=== PATIENT | male | born 1960 | race Caucasian/White ===

== ENCOUNTER 2018-05-18 10:19 | Emergency (ER) | payer OTHER ==
[~2018-05-18] VITALS: Ht 177.8 cm; Wt 108.9 kg
[2018-05-18 10:23] VITALS: BP 140/68
[2018-05-18] MEDS ORDERED: CLON0.2T16 PO (11:17)
[2018-05-18] MEDS ORDERED: OLAN2.5T1 PO (11:17)
[2018-05-18] MEDS ORDERED: GABA100C PO ×2 (11:17)
[2018-05-18] MEDS ORDERED: VITA1TAB44 PO (11:17)
[2018-05-18] MEDS ORDERED: SOLI5TAB PO (11:17)
[2018-05-18] MEDS ORDERED: LEVE750T3 PO (11:17)
[2018-05-18] MEDS ORDERED: ERGO500028 PO (11:17)
[2018-05-18] MEDS ORDERED: PHO667 PO (11:17)
[2018-05-18] MEDS ORDERED: TAMS0.4C96 PO (11:17)
[2018-05-18] MEDS ORDERED: HUM SUBQ (11:17)
[2018-05-18] MEDS ORDERED: DIT5 PO (11:17)
[2018-05-18] MEDS ORDERED: FURO-570 PO (11:17)
[2018-05-18] MEDS ORDERED: ATOR40TA PO (11:17)
[2018-05-18] MEDS ORDERED: CLOP75TA55 PO (11:17)
[2018-05-18] MEDS ORDERED: AMLO10TA PO (11:17)
[2018-05-18] MEDS ORDERED: HYDR100T79 PO (11:17)
[2018-05-18] MEDS ORDERED: SERT25TA PO (11:17)
[2018-05-18 11:36] LABS: BASOPHILS # (AUTO) 0.1 K/uL (0.00-0.22); BASOPHILS % (AUTO) 1.1 % (0.0-2.0); EOSINOPHILS # (AUTO) 0.3 K/uL (0-0.4); EOSINOPHILS % (AUTO) 4.5 % (0.0-4.0); HEMATOCRIT 36.7 % (36-52); HEMOGLOBIN 11.9 g/dL (12.0-18.0); LYMPHOCYTES % (AUTO) 29.9 % (20.5-51.1); MEAN CORPUSCULAR HEMOGLOBIN 30 pg (27-31); MEAN CORPUSCULAR HGB CONC 33 g/dL (33-37); MEAN CORPUSCULAR VOLUME 90.7 fL (80-94); MONOCYTES # (AUTO) 0.6 K/uL (0.8-1.0); MONOCYTES % (AUTO) 9.3 % (1.7-9.3); NEUTROPHILS # (AUTO) 3.8 K/uL (1.8-7.7); NEUTROPHILS % (AUTO) 55.2 % (42.2-75.2); PLATELET COUNT (AUTO) 206 K/uL (140-450); RED BLOOD CELL COUNT(AUTO) 4.05 MIL/uL (4.20-6.10); RED CELL DISTRIBUTION WIDTH 15.8 % (11.6-13.7); WHITE BLOOD COUNT (AUTO) 6.8 K/uL (4.8-10.8)
[2018-05-18 11:52] LABS: PROTHROMBIN TIME 10.4 secs (10.8-13.4)
[2018-05-18 11:54] LABS: ALBUMIN 3.3 g/dL (3.4-5.0); ANION GAP 14.8 (8-16); CARBON DIOXIDE 29.5 mmol/L (21-32); POTASSIUM 5.3 mmol/L (3.5-5.1); TOTAL BILIRUBIN 0.8 mg/dL (0.0-1.0)
[2018-05-18 11:57] LABS: CREATININE 9.3 mg/dL (0.7-1.3)
[2018-05-18] MEDS ORDERED: SODIUM POLYSTYRENE 15 GM/60 ML UDBTL PO ONE (12:15)
[2018-05-18 15:59] VITALS: BP 131/69
== END 2018-05-18 16:00 | disposition home or self-care (01) ==
LOC: MED 10:19
DX: D18.09 Hemangioma of other sites (principal); Z86.73 Personal history of transient ischemic attack (TIA), and cerebral infarction without residual deficits; E11.9 Type 2 diabetes mellitus without complications; F20.9 Schizophrenia, unspecified; Z79.4 Long term (current) use of insulin; Z79.899 Other long term (current) drug therapy
CPT/HCPCS: 36415; 71045; 80053; 83880; 84484; 85025; 85610; 85730; 99285; Q0092

== ENCOUNTER 2018-06-01 13:15 | Emergency (ER) | payer OTHER ==
[~2018-06-01] VITALS: Ht 182.9 cm; Wt 97.5 kg
[~2018-06-01 13:15] MED LIST: AMLO10TA PO; ATOR40TA PO; CLON0.2T16 PO; CLOP75TA55 PO; DIT5 PO; ERGO500028 PO; FURO-570 PO; GABA100C PO; HUM SUBQ; HYDR100T79 PO; LEVE750T3 PO; OLAN2.5T1 PO; PHO667 PO; SERT25TA PO; SOLI5TAB PO; TAMS0.4C96 PO; VITA1TAB44 PO
[2018-06-01 13:21] VITALS: BP 193/97
[2018-06-01] MEDS: MORPHINE SULFATE 2 MG/ML SYR IM ONE (14:57)
[2018-06-01 16:28] VITALS: BP 188/86
== END 2018-06-01 16:28 | disposition home or self-care (01) ==
LOC: MED 13:15
DX: E11.22 Type 2 diabetes mellitus with diabetic chronic kidney disease (principal); I12.0 Hypertensive chronic kidney disease with stage 5 chronic kidney disease or end stage renal disease; N18.6 End stage renal disease; M54.42 Lumbago with sciatica, left side; Z99.2 Dependence on renal dialysis; Z86.73 Personal history of transient ischemic attack (TIA), and cerebral infarction without residual deficits; Z79.899 Other long term (current) drug therapy
CPT/HCPCS: 71045; 74176; 82948; 93005; 96372; 99284; J2270; Q0092

== ENCOUNTER 2018-07-29 10:32 | Emergency (ER) | payer OTHER ==
[~2018-07-29] VITALS: Ht 175.3 cm; Wt 115.7 kg
[2018-07-29 10:36] VITALS: BP 139/67
--- NOTE | 2018-07-29 10:46 | NUR ---
58 YO MALE BIB EMS FROM DIALYSIS CENTER FOR LEFT LEG PAIN. AWAKE AND ALERT ON ARRIVAL YELLING AND ARGUMENTATIVE. DENIES N/V/D. PATIENT STATES PAIN OF 8/10 AT THIS TIME. PATIENT POSITIONED FOR COMFORT; HOB ELEVATED; BEDRAILS UP X2; BED DOWN. ER MD MADE AWARE OF PT STATUS.
--- NOTE | 2018-07-29 11:13 | NUR ---
Patient being evaluated by DR MADISON at bedside.
[2018-07-29] MEDS ORDERED: MORPHINE SULFATE 4 MG/ML SYR IVP ONE (11:20)
[2018-07-29] MEDS ORDERED: ONDANSETRON 4 MG/2 ML VIAL IVP ONE (11:25)
[2018-07-29 11:49] LABS: BASOPHILS # (AUTO) 0.1 K/uL (0.00-0.22); BASOPHILS % (AUTO) 0.3 % (0.0-2.0); EOSINOPHILS % (AUTO) 0.2 % (0.0-4.0); HEMATOCRIT 29.1 % (36-52); HEMOGLOBIN 9.2 g/dL (12.0-18.0); LYMPHOCYTES # (AUTO) 1.6 K/uL (2.0-11.5); LYMPHOCYTES % (AUTO) 7.7 % (20.5-51.1); MEAN CORPUSCULAR HEMOGLOBIN 27 pg (27-31); MEAN CORPUSCULAR HGB CONC 32 g/dL (33-37); MEAN CORPUSCULAR VOLUME 86.5 fL (80-94); MONOCYTES # (AUTO) 1.4 K/uL (0.8-1.0); MONOCYTES % (AUTO) 7.1 % (1.7-9.3); NEUTROPHILS # (AUTO) 17.1 K/uL (1.8-7.7); NEUTROPHILS % (AUTO) 84.7 % (42.2-75.2); PLATELET COUNT (AUTO) 404 K/uL (140-450); RED BLOOD CELL COUNT(AUTO) 3.36 MIL/uL (4.20-6.10); RED CELL DISTRIBUTION WIDTH 15.9 % (11.6-13.7); WHITE BLOOD COUNT (AUTO) 20.2 K/uL (4.8-10.8)
--- NOTE | 2018-07-29 12:05 | NUR ---
US AT BEDSIDE
[2018-07-29 12:31] LABS: CREATININE 8.4 mg/dL (0.7-1.3); POTASSIUM 4.1 mmol/L (3.5-5.1)
[2018-07-29 12:32] LABS: ANION GAP 16.9 (8-16); CARBON DIOXIDE 29.2 mmol/L (21-32)
--- NOTE | 2018-07-29 14:32 | NUR ---
CALLED [phone]. spoke to Lela BENSON FROM [facility]. REPORTED PT DISCHARGE TO FACILITY.
--- NOTE | 2018-07-29 15:00 | NUR ---
PROVIED RANAL DIET.PT ATE 100%. DENIES N/V AT THIS TIME.
--- NOTE | 2018-07-29 15:32 | NUR ---
WAIT IN LOBBY FOR TRANSPORTATION AT 0700PM. NOTIFIED HIGINIO VAN Addendum: 07/29/18 at 1549 by [email or web address] DISCONECT 24 G RFA BEFORE DC.
[2018-07-29 19:17] VITALS: BP 135/81
--- NOTE | 2018-07-29 19:17 | NUR ---
Patient discharged with v/s stable. Written and verbal after care instructions given and explained. Patient verbalized understanding. Wheel Chair Assisted with to car. All questions addressed prior to discharge. Advised to follow up with PMD. FOUNDER CEO & PRESIDENT BY EMS ABBEY TURNER TO [facility].
== END 2018-07-29 19:17 | disposition home or self-care (01) ==
LOC: MED 10:32
DX: M79.605 Pain in left leg (principal); E11.9 Type 2 diabetes mellitus without complications; H54.7 Unspecified visual loss; I10 Essential (primary) hypertension; Z86.73 Personal history of transient ischemic attack (TIA), and cerebral infarction without residual deficits; Z79.4 Long term (current) use of insulin; Z79.899 Other long term (current) drug therapy
CPT/HCPCS: 36415; 80048; 82948; 85025; 93926; 93971; 96374; 96375; 99284; J2270; J2405; Q0092

== ENCOUNTER 2018-10-14 12:25 | Inpatient (IN) | payer OTHER ==
[~2018-10-14] VITALS: Ht 172.7 cm; Wt 92.5 kg
[2018-10-14 12:30] VITALS: BP 129/74
--- NOTE | 2018-10-14 12:30 | NUR ---
Patient BIBA BLS, transferred to bed 3. RN evaluating patient at bedside.
--- NOTE | 2018-10-14 12:30 | NUR ---
PT HOMER FROM DIALYSIS CENTER, DURING MIDDLE OF DIALYSIS, STAFF STATED PT C/O DIZZINESS AND BECAME HYPOTENSIVE DURING DIALYSIS, DOCTOR WANTED PT TO BE EVALUATED IN ER, PT IS AT HIS BASELINE, YELLING INTERMITTENLY, UNABLE TO ANSWER QUESTIONS APPROPRIATELY. SURGICAL SUTURE NOTED ON LFA. DIALYSIS CATH TO R SUBCLAVIAN. PT HAS G-TUBE, RECTAL TUBE. PT IS ON CDIFF ISOLATION. HOB UP. BED SIDE RAILS UP X2. ON LOW BED POSITION, LOCKED. ER MADE AWARE OF PT STATUS.
--- NOTE | 2018-10-14 13:24 | NUR ---
No paperwork came with patient upon arrival. Called and spoke to Meaghan at [facility] and requested list of medications to be faxed to our fax.
[2018-10-14] MEDS ORDERED: ASPI-1718 PO (13:56)
[2018-10-14] MEDS ORDERED: FOLI1TAB90 PO (13:56)
[2018-10-14] MEDS ORDERED: XAR10 PO (13:56)
[2018-10-14] MEDS ORDERED: ATA25 PO (13:56)
[2018-10-14] MEDS ORDERED: HYDR-5122 PO (13:56)
[2018-10-14] MEDS ORDERED: ACET-2619 PO (13:56)
[2018-10-14 13:59] LABS: BASOPHILS # (AUTO) 0.3 K/uL (0.00-0.22); BASOPHILS % (AUTO) 1.5 % (0.0-2.0); EOSINOPHILS % (AUTO) 0.2 % (0.0-4.0); HEMATOCRIT 32.2 % (36-52); HEMOGLOBIN 9.9 g/dL (12.0-18.0); LYMPHOCYTES # (AUTO) 4.2 K/uL (2.0-11.5); LYMPHOCYTES % (AUTO) 22.4 % (20.5-51.1); MEAN CORPUSCULAR HEMOGLOBIN 25 pg (27-31); MEAN CORPUSCULAR HGB CONC 31 g/dL (33-37); MEAN CORPUSCULAR VOLUME 79.2 fL (80-94); MONOCYTES # (AUTO) 1.7 K/uL (0.8-1.0); NEUTROPHILS # (AUTO) 12.6 K/uL (1.8-7.7); NEUTROPHILS % (AUTO) 66.9 % (42.2-75.2); PLATELET COUNT (AUTO) 537 K/uL (140-450); RED BLOOD CELL COUNT(AUTO) 4.07 MIL/uL (4.20-6.10); RED CELL DISTRIBUTION WIDTH 18.8 % (11.6-13.7); WHITE BLOOD COUNT (AUTO) 18.8 K/uL (4.8-10.8)
[2018-10-14 14:33] LABS: ALBUMIN 2.7 g/dL (3.4-5.0); ANION GAP 19.2 (8-16); CARBON DIOXIDE 27.9 mmol/L (21-32); POTASSIUM 3.1 mmol/L (3.5-5.1); TOTAL BILIRUBIN 0.5 mg/dL (0.0-1.0)
[2018-10-14 14:36] LABS: CREATININE 5.4 mg/dL (0.7-1.3)
--- NOTE | 2018-10-14 14:55 | NUR ---
PATIENT TAKEN TO CT VIA BED.
--- NOTE | 2018-10-14 15:10 | NUR ---
UNABLE TO OBTAIN IV ACCESS. TRIED MULTIPLE TIMES. ER MADE AWARE. ADMITTING DR AHUMADA AWARE AND STATED THAT THEY WILL PLACE CENTRAL LINE ON ADMISSION ON THE FLOOR.
--- NOTE | 2018-10-14 15:17 | NUR ---
PT TAKEN BACK TO ROOM VIA BED BY CHEMICAL PRODUCTION MACHINE OPERATOR
[2018-10-14] MEDS ORDERED: ONDANSETRON 4 MG/2 ML VIAL IM/IVP PRN (17:25)
[2018-10-14] MEDS ORDERED: DOCUSATE SODIUM 100 MG GELCAP PO PRN (17:25)
[2018-10-14] MEDS ORDERED: ACETAMINOPHEN 325 MG TAB PO PRN (17:25)
[2018-10-14 18:00] VITALS: BP 143/71
--- NOTE | 2018-10-14 18:00 | NUR ---
Patient will be admitted to care of Dr. Johnson. Admited to Tele. Will go to room 114. Belongings list completed. Report to MARCELINO Asencio.
--- NOTE | 2018-10-14 18:00 | NUR ---
RECEIVED BEDSIDE REPORT FROM ER NURSE TAD. PT STABLE, AWAKE, AND CONFUSED. PT YELLING AND SCREAMING. NO SIGNS OF DISTRESS NOTED. NO IV ACCESS, ER UNABLE TO INSERT IV, ORDERED TO PUT CENTRAL LINE. CALL CORNEJO WITHIN REACH. BED IN LOWEST POSITION, BED ALARM ON. SAFETY MEASURES IN PLACE. PLAN OF CARE REVIEWED.
[2018-10-14] MEDS: LORazepam 2 MG/ML VIAL IVP SCH ×2 (18:30→21:06)
--- NOTE | 2018-10-14 18:40 | NUR ---
RECEIVED VERBAL CONSENT FROM BROTHER EMILY SINGLETON FOR CENTRAL LINE INSERTION. Addendum: 10/14/18 at 1950 by Tosha Davenport RN DR HARRISON IS SECOND WITNESS, CONSENT IN THE CHART.
[2018-10-14 18:49] LABS: CHOL/HDL RATIO 5.8 (1-4.5); FREE T4 (FREE THYROXINE) 1.02 ng/dL (0.76-1.46); MAGNESIUM 2.1 mg/dL (1.8-2.4); THYROID STIMULATING HORMONE 5.6 uIU/mL (0.34-3.74)
[2018-10-14 18:50] LABS: PHOSPHORUS 0.9 mg/dL (2.5-4.9)
--- NOTE | 2018-10-14 19:15 | NUR ---
RECEIVED BEDSIDE REPORT FROM RN CESILIA HOBSON, PATIENT IN BED SCREAMING "NO" AND "HELP". RESPONSIVE TO NAME WILL SAY "OKAY" WHEN BEING SPOKE TO. ON RA, NO IV, HAS G TUBE, HAS RECTAL TUBE, ON TELE SR, DR ALSTON TO INSERT CENTRAL LINE, CONSENT SIGNED AND IN CHART, V/S STABLE, NOTED SACRAL WOUNDS, BLACK TOES ON RIGHT FOOT, AND RIGHT HIP WOUND.
--- NOTE | 2018-10-14 19:15 | NUR ---
ENDORSED PT TO RN SUMMER FOR CONTINUITY OF CARE. PT STABLE.
[2018-10-14 19:30] VITALS: BP 142/70
--- NOTE | 2018-10-14 21:02 | NUR ---
USED HEPARIN 1000U/1ML FOR ORDER DR GAMALIEL PEREZ
--- NOTE | 2018-10-14 21:06 | NUR ---
GAVE ATIVAN IM TO PATIENT PER DR ALSTON'S ORDER, DR ALSTON AT BEDSIDE INSERTING CENTRAL CATH.
--- NOTE | 2018-10-14 22:00 | NUR ---
CENTRAL LINE PLACEMENT NOT SUCCESSFUL. WILL PUT IN PICC TOMORROW ACCORDING TO DR ALSTON
[2018-10-14] MEDS ORDERED: GABA100C GT (22:19)
[2018-10-14] MEDS ORDERED: ASPI-1718 GT (22:19)
[2018-10-14] MEDS ORDERED: CLON0.2T16 GT (22:19)
[2018-10-14] MEDS ORDERED: ACET-2619 PR (22:19)
[2018-10-14] MEDS ORDERED: AMLO10TA GT (22:19)
--- NOTE | 2018-10-14 22:20 | NUR ---
BOTH ATTEMPTED CENTRAL LINE SITES NO LONGER BLEEDING
[2018-10-14] MEDS ORDERED: LEVE750T3 GT (22:25)
[2018-10-14] MEDS ORDERED: VANC250C9 PO (22:25)
[2018-10-14] MEDS ORDERED: VANC250C9 GT (22:25)
[2018-10-14] MEDS ORDERED: SERT25TA GT (22:25)
[2018-10-14] MEDS ORDERED: HYDR100T79 GT (22:25)
[2018-10-14] MEDS ORDERED: OLAN2.5T1 GT (22:25)
[2018-10-14] MEDS ORDERED: HUM SUBQ (22:28)
[2018-10-14] MEDS ORDERED: DEXTROSE 50% 50 ML SYR IVP PRN (22:30)
[2018-10-14] MEDS: VANCOMYCIN 500 MG VIAL PO SCH ×2 (22:34→23:34)
--- NOTE | 2018-10-14 22:34 | NUR ---
VANCO NOT GIVEN DUE TO PO BUT PATIENT IS SEVERELY CONFUSED AND UNKNOWN AT THIS TIME IF PATIENT IS ALERTED ENOUGH TO SWALLOW. PATIENT HAS GTUBE THAT IS NOT WORKING
--- NOTE | 2018-10-14 23:10 | NUR ---
CALLED JORDEN CLIFFORD FOR ASSESSMENT QUESTIONS NOT PROVIDED IN MEDICAL CHART, SPOKE WITH AZAM FOR ADMISSION QUESTIONS, INFORMATION WAS LIMITED DUE TO PATIENT ONLY BEING AT FACILITY SINCE 10/11/18. SOME INFORMATION QUESTIONS WERE UNABLE TO BE OBTAINED, CHARGE NURSE AWARE. CALLED BROTHER NO ANSWER.
[2018-10-14] MEDS ORDERED: HALOPERIDOL IM 5 MG/ML VIAL ONE (23:34)
[2018-10-14] MEDS ORDERED: THERAHONEY GEL 42.5 GM TP PRN (23:35)
--- NOTE | 2018-10-14 23:40 | NUR ---
GAVE HALDOL FOR AGITATION
--- NOTE | 2018-10-14 23:47 | NUR ---
G TUBE LEAKING AROUND OPENING WILL CALL
--- NOTE | 2018-10-14 23:57 | NUR ---
CANT GIVE ATIVAN THROUGH G-TUBE DUE TO G TUBE LEAKING, HELD ATIVAN
[2018-10-15] VITALS: BP 139/60
[2018-10-15] MEDS ORDERED: HALOPERIDOL IM 5 MG/ML VIAL IM SCH
[2018-10-15] MEDS ORDERED: VANCOMYCIN HCL 250 MG GT SCH
[2018-10-15] MEDS ORDERED: LORazepam 1 MG TAB GT SCH
--- NOTE | 2018-10-15 | NUR ---
DR ALSTON AWARE OF WOUNDS, HE WILL PUT IN ORDERS.
--- NOTE | 2018-10-15 00:13 | NUR ---
LASHANDA ATIVAN DUE TO PATIENT SCREAMING Addendum: 10/15/18 at 0036 by Brenna Blunt RN ORDER WAS FOR G TUBE BUT CANT GIVE THROUGH GTUBE DUE TO LEAKING, LASHANDA DENTON, DR ALSTON AWARE
[2018-10-15] MEDS ORDERED: LORazepam 2 MG/ML VIAL IM/IVP SCH ×3 (00:30→23:30)
--- NOTE | 2018-10-15 00:36 | NUR ---
ORDER FOR MORE ATIVAN DUE TO PATIENT CONTINUING TO SCREAM WILL GIVE ACCORDING TO MD ORDER
--- NOTE | 2018-10-15 01:06 | NUR ---
BP 149/60 HR 77
--- NOTE | 2018-10-15 01:16 | NUR ---
CALL FROM LAB SPOKE WITH BREANNA TROPONIN [phone] ALSTON TO NOTIFY
--- NOTE | 2018-10-15 03:00 | NUR ---
ASKED DR ALSTON IF PATIENT CAN HAVE PO WATER, DR STATED NO WE DONT KNOW PATIENTS ABILITY TO SWALLOW AT THIS TIME, WILL HOLD VANCO SINCE G TUBE NOT WORKING
[2018-10-15] MEDS: VANCOMYCIN 500 MG VIAL PO SCH ×3 (03:47→23:58)
[2018-10-15 04:00] VITALS: BP 145/60
--- NOTE | 2018-10-15 04:00 | NUR ---
WOUND CARE AND ASSESSMENT COMPLETED ACCORDING TO MD ORDER. PATIENT SCREAMING ASK DR ALSTON FOR POSSIBLE PAIN MEDICATION
[2018-10-15] MEDS ORDERED: MORPHINE SULFATE 2 MG/ML SYR IM SCH (05:30)
--- NOTE | 2018-10-15 05:30 | NUR ---
CALLED BROTHER AND PICC LINE NURSE FOR PICC LINE INSERTION NO ANSWER LEFT MESSAGE
[2018-10-15] MEDS: BLOOD GLUCOSE MONITORING 1 DEV DEV FS SCH ×4 (05:52→21:23)
--- NOTE | 2018-10-15 05:52 | NUR ---
GAVE MORPHINE IM, BG 169 WILL HOLD INSULIN SINCE PATIENT IS NPO, NO IV FLUIDS, NO TUBE FEEDINGS
--- NOTE | 2018-10-15 06:17 | NUR ---
PATIENT HAS BEEN SCREENED AND CATEGORIZED HIGH NUTRITION RISK. PATIENT WILL BE SEEN WITHIN 1-2 DAYS OF ADMISSION. 10/15/18-10/16/18 IRENE VAZQUEZ MS, RDN
--- NOTE | 2018-10-15 07:33 | NUR ---
ENDORSED PATIENT TO DAY SHIFT NURSE PATIENT STABLE.
--- NOTE | 2018-10-15 07:38 | NUR ---
RECEIVED PT FROM BARKING MACHINE FEEDER NURSE, PRESTON, PT IS AWAKE AND LYING ON THE BED, WITH SIDE RAILS UP AND CALL LIGHT WITHIN REACH, FALL PRECAUTION ENFORCED AND BED ALARM ACTIVATED. PT HAS NO IV LINE IN PLACE BECAUSE PT IS A HARD STICK, RE-INSERTION WAS ATTEMPTED BUT NOT SUCCESSFUL LAST NIGHT PER BARKING MACHINE FEEDER NURSE ENDORSEMENT. PT KEEPS SHOUTING NOW, NO SIGN OF DISTRESS NOTED AND WILL BE CONTINUED TO BE MONITORED.
[2018-10-15 08:00] VITALS: BP 121/70
[2018-10-15] MEDS ORDERED: levETIRAcetam 500 MG TAB GT SCH (09:00)
[2018-10-15] MEDS ORDERED: NON-FORMULARY ITEM (Hydralazine HCl (Hydralazine Hydrochloride) 50 MG) GT SCH (09:00)
[2018-10-15] MEDS: amLODIPine 5 MG TAB GT SCH (09:00)
[2018-10-15] MEDS: hydrALAZINE 25 MG TAB PO SCH ×3 (09:00→17:00)
[2018-10-15] MEDS ORDERED: NON-FORMULARY ITEM (Clonidine HCl (Clonidine) 0.1 MG) GT SCH (09:00)
[2018-10-15] MEDS: cloNIDine 0.1 MG TAB GT SCH ×2 (09:00→21:00)
[2018-10-15] MEDS ORDERED: VANCOMYCIN PER PHARMACY MC PRN (09:15)
[2018-10-15] MEDS ORDERED: PIPER/TAZO 3.375GM/D5W PREMIX 50 ML IV SCH ×2 (10:00→14:00)
--- NOTE | 2018-10-15 10:40 | NUR ---
PT WAS REPOSITIONED AND CLEANED NOW, RECTAL TUBING IN PLACE.
--- NOTE | 2018-10-15 10:40 | NUR ---
DR. PIERCE CAME TO PT'S ROOM WITH DR. SCOTT AND CHECKED ON THE PT'S G-TUBE AND REINFORCED THE SITE WITGH A DRESSING.
[2018-10-15] MEDS ORDERED: VANCOMYCIN 1GM/DEXT 5% PREMIX 200 ML IV SCH ×2 (11:00→15:00)
[2018-10-15] MEDS: levETIRAcetam 100 MG/ML ORASYR PO SCH ×2 (11:02→21:24)
[2018-10-15] MEDS: ASPIRIN 81 MG TAB.CHEW GT SCH (11:05)
[2018-10-15] MEDS: SERTRALINE 50 MG TAB GT SCH (11:06)
[2018-10-15] MEDS: GABAPENTIN 100 MG CAP GT SCH (11:06)
[2018-10-15] MEDS: OLANZapine 2.5 MG TAB GT SCH (11:30)
[2018-10-15] MEDS ORDERED: METOCLOPRAMIDE 10 MG/10 ML SYRP UDC GT SCH (11:30)
[2018-10-15] MEDS ORDERED: POTASSIUM CHLORIDE 40 MEQ, LIDOCAINE MPF 1% - 5 mL VIAL 25 MG in NACL 0.9% 250 ML IV SCH ×2 (11:30→17:00)
[2018-10-15 12:00] VITALS: BP 92/56
[2018-10-15] MEDS ORDERED: ALBUTEROL 0.083% 2.5 MG/3 ML NEBU INH PRN ×2 (12:00)
[2018-10-15] MEDS ORDERED: ALBUTEROL SULFATE/IPRATROPIU 3 ML SOL IH PRN (12:00)
--- NOTE | 2018-10-15 12:44 | NUR ---
PICC LINE INSERTION WAS STARTED NOW BY PICC LINE NURSESHANE ON THE MEDIAL ASPECT OF THE RT UA.
--- NOTE | 2018-10-15 12:45 | NUR ---
PT'S RECTAL TUBING WAS CHANGED WITH A NEW BAG, DRAINED 200ML OF STOOL.
[2018-10-15] MEDS: THERAHONEY GEL 42.5 GM TP SCH (13:00)
--- NOTE | 2018-10-15 13:15 | NUR ---
PICC LINE WAS PLACED TO PT NOW ON THE RT UA, DOUBLE LUMEN.
[2018-10-15] MEDS: ALBUTEROL SULFATE/IPRATROPIU 3 ML SOL IH SCH ×2 (13:54→19:12)
[2018-10-15] MEDS: METOCLOPRAMIDE 10 MG/10 ML SYRP UDC GT SCH ×2 (13:54→17:59)
[2018-10-15] MEDS: NACL 0.9% 1,000 ML IV SCH (14:01)
[2018-10-15] MEDS: INSULIN LISPRO SLIDING SCALE 100 UNITS/ML VIAL SUBQ PRN ×2 (14:14→21:34)
[2018-10-15 15:13] LABS: BASOPHILS # (AUTO) 0.1 K/uL (0.00-0.22); EOSINOPHILS # (AUTO) 0.2 K/uL (0-0.4); EOSINOPHILS % (AUTO) 1.5 % (0.0-4.0); HEMATOCRIT 27.5 % (36-52); HEMOGLOBIN 8.6 g/dL (12.0-18.0); LYMPHOCYTES # (AUTO) 4.1 K/uL (2.0-11.5); LYMPHOCYTES % (AUTO) 29.9 % (20.5-51.1); MEAN CORPUSCULAR HEMOGLOBIN 25 pg (27-31); MEAN CORPUSCULAR HGB CONC 31 g/dL (33-37); MEAN CORPUSCULAR VOLUME 78.8 fL (80-94); MONOCYTES # (AUTO) 1.6 K/uL (0.8-1.0); MONOCYTES % (AUTO) 11.9 % (1.7-9.3); NEUTROPHILS # (AUTO) 7.6 K/uL (1.8-7.7); NEUTROPHILS % (AUTO) 55.7 % (42.2-75.2); PLATELET COUNT (AUTO) 452 K/uL (140-450); RED BLOOD CELL COUNT(AUTO) 3.49 MIL/uL (4.20-6.10); RED CELL DISTRIBUTION WIDTH 18.4 % (11.6-13.7); WHITE BLOOD COUNT (AUTO) 13.6 K/uL (4.8-10.8)
[2018-10-15 15:40] LABS: ANION GAP 12.8 (8-16); CARBON DIOXIDE 32.3 mmol/L (21-32); POTASSIUM 3.1 mmol/L (3.5-5.1)
[2018-10-15 15:44] LABS: MAGNESIUM 2.3 mg/dL (1.8-2.4); PHOSPHORUS 2.4 mg/dL (2.5-4.9)
--- NOTE | 2018-10-15 15:45 | NUR ---
PT IS OFF THE UNIT NOW FOR A HIDA SCAN.
--- NOTE | 2018-10-15 15:47 | NUR ---
RECEIVED A CALL FROM ALDO FROM LAB AND INFORMED OF PT'S CREATININE LEVEL OF 7.
[2018-10-15 16:00] VITALS: BP 114/50
--- NOTE | 2018-10-15 17:29 | NUR ---
PT IS BACK TO ROOM NOW FROM HIDA SCAN.
[2018-10-15] MEDS ORDERED: PIPER/TAZO 2.25GM/D5W PREMIX 50 ML IV SCH (18:00)
--- NOTE | 2018-10-15 19:30 | NUR ---
ENDORSED PT TO SENIOR COURT OFFICE ASSISTANT NURSE, OSKAR FOR CONTINUITY OF CARE. PT IS SHOUTING BUT IS STABLE AT THIS TIME.
--- NOTE | 2018-10-15 19:32 | NUR ---
RECEIVED PT FROM SARAH RN PT AAOX1 ON TELEMETRY SR, PICC LINE ON RT UPPER ARM AND ABDELRAHMAN CATH FOR DIALYSIS ON RT UPPER CHEST, G TUBE ZERO RESIDUAL AND CLAMP SACRAL KWOUN, LEFT HIP WOUND , LEFT HEEL, INITIAL ASSESSMENT DONE
[2018-10-15 20:00] VITALS: BP 107/56
[2018-10-15] MEDS: PIPER/TAZO 2.25GM/D5W PREMIX 50 ML IV SCH (21:25)
--- NOTE | 2018-10-15 21:30 | NUR ---
BLOOD SUGAR TEST 159 COVERAGE WITH 2 UNITS SUBQ HUMALOG FOLLOW PROTOCOL PT REPOSITIONED Q2H
[2018-10-16] VITALS: BP 122/62
--- NOTE | 2018-10-16 | NUR ---
PT ANXIOUS AGITATED ATIVAN GIVENAS ORDER , REPOSITIONED Q2H
--- NOTE | 2018-10-16 02:10 | NUR ---
PT QUIET SLEEPING NOT DISTRESS NOTED REPOSITIONED ON TELEMETRY SB 59
[2018-10-16 04:00] VITALS: BP 119/65
--- NOTE | 2018-10-16 04:00 | NUR ---
SPONGE BATH GIVEN LINEN CHANGED REPOSITIONED NOT DISTRESS NOTED ON TELEMETRY SB
[2018-10-16] MEDS: PIPER/TAZO 2.25GM/D5W PREMIX 50 ML IV SCH ×3 (04:10→21:31)
[2018-10-16] MEDS: VANCOMYCIN 500 MG VIAL PO SCH ×4 (05:27→23:24)
[2018-10-16] MEDS: BLOOD GLUCOSE MONITORING 1 DEV DEV FS SCH ×4 (05:28→21:22)
[2018-10-16] MEDS: METOCLOPRAMIDE 10 MG/10 ML SYRP UDC GT SCH ×3 (05:29→16:59)
--- NOTE | 2018-10-16 05:39 | NUR ---
BLOOD SUGAR TEST 142 NOT COVERAGE PT GETTING SLEEP NOT DISTRESS NOTED; REPOSITIONED Q2H.
--- NOTE | 2018-10-16 05:40 | NUR ---
NOT STOOL SAMPLE FOR C -DIIF SENT TO LAB BECAUSE NOT BM SEEN YET
[2018-10-16 06:32] LABS: BASOPHILS # (AUTO) 0.1 K/uL (0.00-0.22); BASOPHILS % (AUTO) 0.8 % (0.0-2.0); EOSINOPHILS # (AUTO) 0.8 K/uL (0-0.4); EOSINOPHILS % (AUTO) 5.8 % (0.0-4.0); HEMATOCRIT 27.5 % (36-52); HEMOGLOBIN 8.8 g/dL (12.0-18.0); LYMPHOCYTES # (AUTO) 2.8 K/uL (2.0-11.5); LYMPHOCYTES % (AUTO) 20.8 % (20.5-51.1); MEAN CORPUSCULAR HEMOGLOBIN 25 pg (27-31); MEAN CORPUSCULAR HGB CONC 32 g/dL (33-37); MEAN CORPUSCULAR VOLUME 79.1 fL (80-94); MONOCYTES # (AUTO) 1.7 K/uL (0.8-1.0); MONOCYTES % (AUTO) 12.3 % (1.7-9.3); NEUTROPHILS # (AUTO) 8.2 K/uL (1.8-7.7); NEUTROPHILS % (AUTO) 60.3 % (42.2-75.2); PLATELET COUNT (AUTO) 438 K/uL (140-450); RED BLOOD CELL COUNT(AUTO) 3.48 MIL/uL (4.20-6.10); RED CELL DISTRIBUTION WIDTH 18.7 % (11.6-13.7); WHITE BLOOD COUNT (AUTO) 13.6 K/uL (4.8-10.8)
--- NOTE | 2018-10-16 06:33 | NUR ---
PT WILL BE ENDORSED TO DAY SHIFT NURSE FOR CONTINUITY OF CARE
[2018-10-16 06:51] LABS: ANION GAP 13.6 (8-16); CARBON DIOXIDE 33.2 mmol/L (21-32); POTASSIUM 3.8 mmol/L (3.5-5.1)
[2018-10-16 06:57] LABS: CREATININE 7.5 mg/dL (0.7-1.3)
[2018-10-16] MEDS: ALBUTEROL SULFATE/IPRATROPIU 3 ML SOL IH SCH ×3 (07:00→18:45)
--- NOTE | 2018-10-16 07:15 | NUR ---
RECEIVED PT REPORT FROM CORE FILER NURSE AT BEDSIDE. PT IS AWAKE BUT CONFUSED, YELLING OUT INTERMITTENTLY. PT IS 2 L O2 NC. G-TUBE NOTED INFUSING NEPRO 40 ML/HR, WITH 200 ML WATER FLUSHES Q4H. RUE PICC LINE NOTED INFUSING NS 10 ML/HR. OLD DIALYSIS SHUNT NOTED ON THE LUE. ABDELRAHMAN CATH NOTED ON THE R CHEST FOR DIALYSIS. PRESSURE ULCERS NOTED ON THE SACRUM AND L HIP AND L FOOT, COVERED BY DRESSINGS. CONTACT ISOLATION AND FALL PRECAUTIONS IN PLACE. CALL LIGHT WITHIN REACH. WILL CONTINUE TO MONITOR.
[2018-10-16 08:00] VITALS: BP 132/63
[2018-10-16 08:26] LABS: T4 (THYROXINE) 4.7 ug/dL (4.5-12.0)
[2018-10-16] MEDS: BACITRACIN OINT 15000 UNITS/30 GM TUBE TP SCH (09:00)
[2018-10-16] MEDS: SERTRALINE 50 MG TAB GT SCH (09:01)
[2018-10-16] MEDS: levETIRAcetam 100 MG/ML ORASYR PO SCH ×2 (09:02→21:32)
[2018-10-16] MEDS: OLANZapine 2.5 MG TAB GT SCH (09:02)
[2018-10-16] MEDS: hydrALAZINE 25 MG TAB PO SCH ×3 (09:03→16:59)
[2018-10-16] MEDS: ASPIRIN 81 MG TAB.CHEW GT SCH (09:03)
[2018-10-16] MEDS: GABAPENTIN 100 MG CAP GT SCH (09:03)
[2018-10-16] MEDS: amLODIPine 5 MG TAB GT SCH (09:04)
[2018-10-16] MEDS: cloNIDine 0.1 MG TAB GT SCH ×2 (09:04→21:00)
[2018-10-16] MEDS: MORPHINE SULFATE 2 MG/ML SYR IVP PRN (09:06)
--- NOTE | 2018-10-16 09:22 | NUR ---
SCHEDULED AM MEDS ADMINISTERED, PT TOLERATED WELL. G-TUBE IS PATENT AND INTACT. PRN 1 MG IV MORPHINE ADMINISTERED DUE TO PT SCREAMING OUT IN PAIN. WILL REASSESS PAIN IN AN HOUR.
--- NOTE | 2018-10-16 09:26 | NUR ---
DR SCOTT NOTIFIED OF PT'S CREATININE 7.5
[2018-10-16 10:01] LABS: IMMUNOGLOBULIN M 67 mg/dL (20-172)
--- NOTE | 2018-10-16 11:15 | NUR ---
WOUND CARE EVALUATION NOTE: REASON FOR EVALUATION: MULTIPLE PRESSURE ULCER WOUNDS SKIN ASSESSMENT DONE WITH PRIMARY RN ON THIS 58 Y/O MALE PT ADMITTED FROM [facility] TO [facility] WITH INITIAL DX OF DIZZINESS AT DIALYSIS. PT ADMITTED WITH UN-STAGEABLE PRESSURE ULCERS. PAST MEDICAL HX INCLUDES ESRD ON HD, HTN, DM2, AND CVA. ALL ABOVE INFORMATION OBTAINED FROM ADMISSION H&P. PT. HAS PICC LINE TO RIGHT UPPER ARM AND QUINTAN CATH TO RIGHT SUB CLAVICLE DRESSING DCI. PEG TUBE IN PLACE SEEPING OUT SMALL AMOUNT OF FORMULA LIKE FLUID, AND RECTAL TUBE WITH LEAKAGE, PRIMARY RN NOTIFY. SKIN IS WARM AND DRY, BLE NO HAIR GROWTH, NO EDEMA. BILATERAL DORSAL PEDAL PULSES PRESENT AND NORMAL. PLAN OF CARE DISCUSSED WITH PRIMARY RN. INTEGUMENTARY: -2 SUTURES LINES LEFT MEDIAL UPPER ARM, AREA DRY AND CLEAN NO S/S OF WOUND DEHISCENCE AND NO INFECTION -SKIN TEAR TO RIGHT UPPER ARM LATERAL TO QUINTAN CATH, 1X0.5X0.1CM WOUND BED IS DRY AND CLEAN, NO S/S OF INFECTION -GT SITE MURIEL-STOMA SKIN INTACT, SEEPING OUT SMALL AMOUNT OF FORMULA LIKE FLUID, -PRESSURE ULCER UN-STAGEABLE TO LEFT HEEL, 100% BLACK ESCHAR, (PREVIOUS STAGE DTI) WOUND EDGE MACERATED WITH SMALL AMOUNT OF SEROSANGUINEOUS DRAINAGE, NO ODOR, SURROUNDING REDNESS INDICATED FURTHER DAMAGE -PRESSURE ULCER UN-STAGEABLE TO SACRALCOCCYX (PREVIOUS STAGE STAGE 3) 5X6CM WITH OVAL SHAPE, WOUND BED IS 100 % SOFT YELLOW SLOUGH, DRY WITH NO ODOR, SHAKIRA-WOUND SKIN INTACT, SURROUNDING REDNESS INDICATED FURTHER DAMAGE. -PRESSURE ULCER STAGE 3 TO LEFT BUTTOCK (ISCHIUM), 2X2X0.1 CM, WOUND BED IS RED, MOIST NO ODOR, SHAKIRA-WOUND SKIN DENUDED EXTENDED TO PERINEUM IAD -IAD TO PERINEUM AND BASE OF SCROTAL AREA, REDNESS WITH DENUDED SKIN -100% RESURFACE SCAR TISSUE TO RIGHT HIP FROM PREVIOUS STAGE 2 PRESSURE ULCER -BLE WITH XEROSIS AND MULTIPLE PINPOINT BROWN SCABS TO FEET AND TOES RECOMMENDATIONS: -PLEASE FLUSH AND MONITOR RECTAL TUBE TO PREVENT LEAKAGE Q SHIFT -PAINT RIGHT UPPER ARM DRY SKIN TEAR AND LEFT UPPER ARM SUTURES LINE WITH BETADINE SOLUTION QD AND LEAVE IT OPEN TO AIR -APPLY HYDRAGUARD TO: BASE OF SCROTAL AND PERINEUM AREAS AND RIGHT AND LEFT LE/FEET BID AND PRN IF SOILING -LEFT HEEL TO APPLY SOAKED BETADINE SOLUTION WITH 4X4 GAUZES AND WRAP WITH KERLIX ROLLS, SECURE WITH TAPE QD -CLEANSE SACRALCOCCYX AND LEFT BUTTOCKS WOUNDS WITH NS. PAT DRY, APPLY THERAHONEY GEL AND COVER WITH ISLAND DRESSING QD AND PRN IF SOILING -APPLY FOAM DRESSING TO RIGHT HIP QD AND PRN IF SOILING -APPLY HEEL RAISER TO RIGHT /LEFT HEELS AT ALL TIMES -OFFLOAD BILATERAL HEELS BY PLACING PILLOWS UNDER CALVES UNLESS OTHERWISE CONTRAINDICATED -PRESSURE REDISTRIBUTION SURFACE THERAPY -TURN AND REPOSITION Q2H, OFFLOAD SACRALCOCCYX BY TURNING RIGHT AND LEFT -CONTINUE TO FOLLOW RD RECOMMENDATIONS ALL ABOVE RECOMMENDATIONS DISCUSSED WITH PRIMARY RN WILL FOLLOW UP PT Q7-10 DAYS. PLEASE CONTACT WOUND CARE NURSE FOR ANY QUESTION AND CHANGE OF WOUND CONDITION.
--- NOTE | 2018-10-16 11:22 | NUR ---
MULTIPLE ATTEMPTS TO CALL [facility] TO CONFIRM HEMODIALYSIS FOR 10/16 AND 10/17 UNSUCCESSFUL. WILL CONTINUE TO TRY CONTACTING [facility].
--- NOTE | 2018-10-16 11:51 | NUR ---
[facility] NOTIFIED OF PT'S DIALYSIS ORDER FOR TODAY AND TOMORROW.
[2018-10-16 12:00] VITALS: BP 111/58
--- NOTE | 2018-10-16 12:15 | NUR ---
PT'S BP IS DECREASED AT THIS TIME. CHECKED SEVERAL TIMES: RESULTS WERE 72/39, 80/39, 88/44, 81/39. DR SCOTT IS AWARE.
[2018-10-16] MEDS: INSULIN LISPRO SLIDING SCALE 100 UNITS/ML VIAL SUBQ PRN ×3 (12:43→21:30)
[2018-10-16] MEDS: THERAHONEY GEL 42.5 GM TP SCH (13:03)
--- NOTE | 2018-10-16 13:08 | NUR ---
DR RUDOLPH IS AWARE OF PTS G-TUBE LEAKING. PT'S RESIDUAL IS 100 ML AT THIS TIME. FEEDING IS RESUMED
--- NOTE | 2018-10-16 13:08 | NUR ---
PT'S BP IS 111/58 AT THIS TIME.
--- NOTE | 2018-10-16 13:38 | NUR ---
PT HAVING A BREATHING TX AT THIS TIME
[2018-10-16] MEDS: NACL 0.9% 1,000 ML IV SCH (13:45)
--- NOTE | 2018-10-16 14:42 | NUR ---
10/16/18 RD INITIAL ASSESSMENT COMPLETED PLEASE REFER TO NUTRITION ASSESSMENT UNDER CARE ACTIVITY FOR ESTIMATED NUTRITIONAL NEEDS. 1. RECOMMEND NEPRO AT 60 ML/HR -THIS WILL PROVIDE A VOLUME OF 1440 ML, 2592 KCAL ENERGY, 116.6 GM PROTEIN. IT MEETS 100% OF PT�S ENERGY AND PROTEIN NEEDS. 2. RECOMMEND FWF 200 ML Q4H 3. RECOMMEND VITAMIN C 9675-9031 MG/DAY FOR WOUND HEALING 4. IF PT IS NOT TOLERATING THE FORMULA, CONSULT WITH MD AND CONSIDER OTHER FORMULA 5. RD TO FOLLOW-UP 2-3 DAYS, HIGH RISK YAA MICHAEL RD
--- NOTE | 2018-10-16 14:47 | NUR ---
PT WAS CLEANED AND REPOSITIONED. PHOTOS TAKEN OF WOUNDS AND NEW DRESSINGS APPLIED. LINENS CHANGED.
[2018-10-16 16:00] VITALS: BP 123/59
--- NOTE | 2018-10-16 17:07 | NUR ---
PT REPOSITIONED IN BED AND CLEANED. PT IS QUIETLY SLEEPING AT THIS TIME.
--- NOTE | 2018-10-16 17:41 | NUR ---
STOOL SAMPLE COLLECTED AND TAKEN TO LAB TO TEST FOR C.DIFF
--- NOTE | 2018-10-16 19:20 | NUR ---
PT ENDORSED TO UPPER TIER IN STABLE CONDITION.
[2018-10-16 20:45] VITALS: BP 93/43
--- NOTE | 2018-10-16 20:45 | NUR ---
DIALYSIS NURSE SAID HE PUT IN AN ORDER FOR ALBUMIN 25% 200ML FOR BP SUPPORT STAT PER DR AMADOR. AND ALSO, HEPARIN 5000UNITS X2 FOR DIALYSIS FLUSH. HE SAID PT'S BP IS ON THE 80'S NOW. HE SAID, HE STOPPED THE DIALYSIS AND DR AMADOR AWARE. ORDER PLACED PER ORDER. WILL AWAIT FOR PHARMACY VERIFICATION. SEEN PT APPEARS ASLEEP BUT AROUSABLE TO STIMULI. INITIAL ASSESSMENT DONE. VITAL SIGNS CHECKED. ISOLATION AND FALL PRECAUTION REINFORCED. WILL F/U ALBUMIN ORDER.
[2018-10-16] MEDS ORDERED: ALBUMIN HUMAN 25% 100 ML IV SCH ×2 (21:00→22:45)
[2018-10-16] MEDS ORDERED: ALBUMIN HUMAN 25% 200 ML IV ONE (21:04)
--- NOTE | 2018-10-16 21:10 | NUR ---
PT'S BP DEEPS DOWN TO 70'S. ALBUMIN OVERRIDE PER MD. DIALYSIS NURSE SAID DON'T GIVE IT BECAUSE FOR SURE HIS BP WILL GO UP. BP RECHECKED AFTER 15MINS, WENT UP TO 80'S. ALBUMIN STARTED. THEN BP WENT UP TO 93/43. BLOOD SUGAR CHECKED:196. WILL COVER W/ INSULIN PER SLIDING SCALE. GTUBE CHECKED. RESIDUAL OF 30ML NOTED FOLLOWED BY 30ML FLUSH. OTHER MEDICATIONS GIVEN PER ORDER W/ TEACHINGS.
--- NOTE | 2018-10-16 23:20 | NUR ---
TECHNICAL MANAGER CHEMICAL PLANT AT BEDSIDE GIVING PM CARE. PT REPOSITIONED FOR COMFORT. VITAL SIGNS CHECKED AND WNL. RESIDUAL OF 20ML NOTED ON GTUBE. VANCO LIQUID GIVEN FOLLOWED BY 20ML FLUSH. WILL CONTINUE TO MONITOR.
[2018-10-17] VITALS: BP 120/60
[2018-10-17] MEDS: HYDRAGUARD CREAM TP SCH ×2 (00:45→13:16)
--- NOTE | 2018-10-17 01:30 | NUR ---
PT STARTED SCREAMING SAYING "MOM, I'M HUNGRY". PT ORIENTED TO TIME AND PLACE AND TOLD HIM THAT HE HAS GTUBE WHERE HE GET HIS FOOD. PT SAID "OK". WILL CONTINUE TO MONITOR.
--- NOTE | 2018-10-17 02:00 | NUR ---
PT SCREAMING AND YELLING AGAIN SAYING "I'M HUNGRY." TOLD PT TO STOP YELLING AND THAT HE'S GETTING HIS FOOD ON HIS GTUBE. PT SAID "OK". PT REPOSITIONED FOR COMFORT.
[2018-10-17 02:55] VITALS: BP 163/79
[2018-10-17] MEDS: MORPHINE SULFATE 2 MG/ML SYR IVP PRN (02:56)
[2018-10-17 04:45] VITALS: BP 141/74
[2018-10-17] MEDS: PIPER/TAZO 2.25GM/D5W PREMIX 50 ML IV SCH ×3 (04:45→21:24)
--- NOTE | 2018-10-17 04:45 | NUR ---
SEEN PT AWAKE, SCREAMING AND YELLING. ASKED PT WHAT HE NEEDS. PT SAID "NOTHING". PT ORIENTED TO TIME AND PLACE. TOLD PT NOT TO SCREAM AND YELL BECAUSE OTHER PATIENTS ARE SLEEPING. PT SAID "OK." VITAL SIGNS CHECKED. PT REPOSITIONED FOR COMFORT. IVPB ANTIBIOTIC GIVEN ORDERED. WILL CONTINUE TO MONITOR.
[2018-10-17] MEDS: VANCOMYCIN 500 MG VIAL PO SCH ×3 (06:20→17:58)
[2018-10-17] MEDS: BLOOD GLUCOSE MONITORING 1 DEV DEV FS SCH ×4 (06:20→21:00)
[2018-10-17] MEDS: METOCLOPRAMIDE 10 MG/10 ML SYRP UDC GT SCH ×3 (06:21→16:42)
--- NOTE | 2018-10-17 06:30 | NUR ---
PT STILL SCREAMING A LOT. BUT WHENEVER YOU ASK HIM AND INSTRUCT NOT TO SCREAM, HE WILL SAY "OK", THEN START SCREAMING AGAIN. BLOOD SUGAR CHECKED:174. WILL COVER W/ INSULIN. NO RESIDUAL ON GTUBE NOTED. MEDICATIONS GIVEN ORDERED. PT REPOSITIONED COMFORTABLY.
[2018-10-17] MEDS: INSULIN LISPRO SLIDING SCALE 100 UNITS/ML VIAL SUBQ PRN ×3 (06:34→22:48)
[2018-10-17] MEDS: ALBUTEROL SULFATE/IPRATROPIU 3 ML SOL IH SCH ×3 (07:22→19:05)
--- NOTE | 2018-10-17 07:22 | NUR ---
PT REPORT GIVEN TO DAYSHIFT NURSE FOR CONTINUITY OF CARE.
--- NOTE | 2018-10-17 07:25 | NUR ---
RECEIVED PT FROM SENIOR BIOSTATISTICIAN/GROUP LEADER NURSE FOR CONTINUITY OF CARE. PT IS AWAKE AND LYING ON HIS LEFT LATERAL SIDE. AOX1 TO NAME; ABLE TO FOLLOW SIMPLE COMMANDS AND MAKE NEEDS KNOWN. RESPIRATION EVEN AND UNLABORED, ON 2LPM NC. NO SIGNS OF DISTRESS NOTED. MANPREET PICC LINE NOTE AND INFUSING 10ML/NS AT THIS TIME. SACRAL WOUND AND LEFT BUTTOCK WOUND NOTED, DRESSINGS ARE IN PLACE, CLEAN AND DRY. DIALYSIS SHUNT ON R CHEST NOTED. G-TUBE IN PLACE AND RUNNING 40ML/HR OF NEPRO. RECTAL BAG IN PLACE, AND COLLECTED 1/3 OF LIQUID STOOL. PATIENT IS BEDREST AND UNABLE TO AMBULATE. HEEL WEDGES ON BOTH HEELS. FALL PRECAUTION ENFORCED, BOTH SIDE RAILS ARE UP AND BED ALARM ACTIVATED. ASPIRATION PRECAUTION IN PLACE, CONTACT PRECAUTION IN PLACE, SEIZURE PRECAUTION IN PLACE. TELE MONITOR ATTACHED. BED IN LOW POSITION AND CALL LIGHT WITHIN REACH.
[2018-10-17 07:59] LABS: ANION GAP 20.4 (8-16); CARBON DIOXIDE 25.9 mmol/L (21-32); POTASSIUM 3.3 mmol/L (3.5-5.1)
[2018-10-17 08:03] LABS: MAGNESIUM 1.9 mg/dL (1.8-2.4)
[2018-10-17 08:46] LABS: BASOPHILS # (AUTO) 0.1 K/uL (0.00-0.22); BASOPHILS % (AUTO) 0.7 % (0.0-2.0); EOSINOPHILS # (AUTO) 0.9 K/uL (0-0.4); EOSINOPHILS % (AUTO) 5.6 % (0.0-4.0); HEMATOCRIT 27.6 % (36-52); HEMOGLOBIN 8.6 g/dL (12.0-18.0); LYMPHOCYTES # (AUTO) 4.1 K/uL (2.0-11.5); LYMPHOCYTES % (AUTO) 25.9 % (20.5-51.1); MEAN CORPUSCULAR HEMOGLOBIN 25 pg (27-31); MEAN CORPUSCULAR HGB CONC 31 g/dL (33-37); MEAN CORPUSCULAR VOLUME 78.9 fL (80-94); MONOCYTES # (AUTO) 1.5 K/uL (0.8-1.0); MONOCYTES % (AUTO) 9.4 % (1.7-9.3); NEUTROPHILS # (AUTO) 9.3 K/uL (1.8-7.7); NEUTROPHILS % (AUTO) 58.4 % (42.2-75.2); PLATELET COUNT (AUTO) 444 K/uL (140-450)
[2018-10-17 09:13] LABS: CREATININE 6.1 mg/dL (0.7-1.3); PHOSPHORUS 0.5 mg/dL (2.5-4.9)
--- NOTE | 2018-10-17 09:15 | NUR ---
DIALYSIS NURSE EDWIGE IS AT BEDSIDE AND PATIENT IS DOING DIALYSIS. SAFETY MEASURES ARE IN PLACE.
--- NOTE | 2018-10-17 09:20 | NUR ---
RECEIVED CRITICAL LAB VALVES FOR CREATININE 6.[address] RUDOLPH WAS AWARE.
[2018-10-17 10:30] VITALS: BP 136/70
[2018-10-17 10:48] LABS: IMMUNOGLOBULIN A 709 mg/dL (70 - 400); IMMUNOGLOBULIN G 3718 mg/dL (700 - 1600)
--- NOTE | 2018-10-17 11:25 | NUR ---
DIALYSIS NURSE EDWIGE IS AT BEDSIDE. PATIENT IS STILL DOING DIALYSIS. SAFETY MEASURES IN PLACE. NO SIGNS OF DISTRESS NOTED.
[2018-10-17] MEDS: amLODIPine 5 MG TAB GT SCH (12:27)
[2018-10-17] MEDS: levETIRAcetam 100 MG/ML ORASYR PO SCH ×2 (12:27→21:30)
[2018-10-17] MEDS: ASPIRIN 81 MG TAB.CHEW GT SCH (12:27)
[2018-10-17] MEDS: GABAPENTIN 100 MG CAP GT SCH (12:28)
[2018-10-17] MEDS: cloNIDine 0.1 MG TAB GT SCH ×2 (12:28→21:00)
[2018-10-17] MEDS: SERTRALINE 50 MG TAB GT SCH (12:29)
[2018-10-17] MEDS: ASCORBIC ACID 500 MG/5 ML ORASYR GT SCH (12:29)
[2018-10-17] MEDS: hydrALAZINE 25 MG TAB PO SCH ×3 (12:31→16:43)
[2018-10-17] MEDS: BACITRACIN OINT 15000 UNITS/30 GM TUBE TP SCH (12:31)
--- NOTE | 2018-10-17 12:35 | NUR ---
CHECKED PATIENT'S BP AND 116/59 AND PULSE 93. ADMINISTERED AM MEDS PER MD ORDER VIA G-TUBE, PATIENT TOLERATED WELL. CHECKED G-TUBE RESIDUAL AND RECEIVED 55 ML. HOLD 1300 HYDRALAZINE DUE TO TOO CLOSE TO ADMINISTER WITH THE AM MED.
[2018-10-17] MEDS: OLANZapine 2.5 MG TAB GT SCH (12:42)
[2018-10-17] MEDS: THERAHONEY GEL 42.5 GM TP SCH (13:15)
[2018-10-17] MEDS: GAUZE TP SCH (13:16)
--- NOTE | 2018-10-17 13:40 | NUR ---
PATIENT IS RESTING ON BED AT THIS TIME. CHECKED G-TUBE RESIDUAL AND RECEIVED 25 ML. NO SIGNS OF DISTRESS NOTED. SAFETY MEASURES IN PLACE.
[2018-10-17] MEDS: NACL 0.9% 1,000 ML IV SCH (13:45)
[2018-10-17] MEDS ORDERED: VANCOMYCIN 1GM/DEXT 5% PREMIX 200 ML IV SCH (15:00)
--- NOTE | 2018-10-17 15:30 | NUR ---
CHECKED WITH PHARMACIST PRIOR TO ADMINISTER VANCOMYCIN. PER PHARMACIST, SINCE PATIENT HAD DIALYSIS THIS AM, IT'S OK TO ADMINISTERED. ADMINISTERED PER MD ORDER. PATIENT IS SHOUTING ON BED. REORIENTED PATINE TO NAME, PLACE, TIME AND DATE. SAFETY MEASURES ARE IN PLACE.
[2018-10-17 16:00] VITALS: BP 110/51
[2018-10-17] MEDS ORDERED: POTASSIUM PHOSPHATE 15 MM in NACL 0.9% 250 ML IV SCH (16:00)
[2018-10-17] MEDS ORDERED: SODIUM PHOSPHATE 30 MMOLE in NACL 0.9% 250 ML IV SCH (16:30)
--- NOTE | 2018-10-17 17:20 | NUR ---
PATIENT IS RESTING ON BED. CHECKED G-TUBE FEEDING AND RECEIVED RESIDUAL 30 ML. NO SIGNS OF DISTRESS NOTED. SAFETY MEASURES ARE IN PLACE.
--- NOTE | 2018-10-17 19:33 | NUR ---
ENDORSED PATIENT AT BEDSIDE TO CUSTOMER ADVISOR SPECIALIST NURSE FOR CONTINUITY OF CARE. PATIENT IS IN A STABLE CONDITION. SAFETY MEASURES ARE IN PLACE.
--- NOTE | 2018-10-17 19:33 | NUR ---
RECEIVED ENDORSEMENT FROM MYNOR BENSON DAYSHIFT NURSE AT BEDSIDE FOR CONTINUITY OF CARE, PT IN STABLE CONDITION.
--- NOTE | 2018-10-17 20:00 | NUR ---
PT IN BED WITH ALL FALLS, CONTACT, SEIZURE AND ASPIRATION PRECAUTIONS IN PLACE. IV SITE ON R UPPER ARM INTACT PIC LINE WITH DOUBLE LUMEN, FLUSHED PATENT RUNNING POTASSIUM CHLORIDE ORDERED 42.5MLS/HR. PT ALSO HAS TUBE FEEDING NEPRO RUNNING AT 40MLS/HR, GT TUBE SITE LEAKING, PRIMARY MD AWARE, RESIDUAL WAS 30CC. PT HAS 2 LITER VIA N/C AND HOB UP 45 DEGREES. V/S FOLLOWS T 97.3 P 110 R 20 B/P 81/45 02 100% ON 2 LITERS VIA N/C.
--- NOTE | 2018-10-17 21:15 | NUR ---
FINGERSTICK IS 197 GIVEN 2UNITS COVERAGE WITH HUMALOG.
[2018-10-17] MEDS: HYDROcodone/APAP 7.5/325 MG 1 TAB PO PRN (21:30)
--- NOTE | 2018-10-17 21:30 | NUR ---
PT IN BED GIVEN DUE MEDS VIA GT AND ZOSYN HUNG ORDERED. PT TURNED AND REPOSITIONED.
--- NOTE | 2018-10-17 21:45 | NUR ---
PT GIVEN NORCO VIA GT FOR MODERATE PAIN 12/11
--- NOTE | 2018-10-18 00:44 | NUR ---
PT NO C/O OF PAIN OR DISTRESS NOTED, ORAL CARE GIVEN, VANOCOCIN GIVEN VIA GT. V/S FOLLOWS T 99.2 P 95 R 18 B/P 92/51 02 95% WITH 2ITERS VIA N/C. GT RUNNING NEPHRO ORDERED. HEEL PROTECTORS ON AND GT RUNNING ORDERED.
[2018-10-18] MEDS: HYDRAGUARD CREAM TP SCH ×2 (01:00→13:55)
[2018-10-18] MEDS: VANCOMYCIN 500 MG VIAL PO SCH ×2 (01:19→04:58)
[2018-10-18 02:47] VITALS: BP 81/45
[2018-10-18] MEDS: PIPER/TAZO 2.25GM/D5W PREMIX 50 ML IV SCH ×2 (04:04→12:00)
--- NOTE | 2018-10-18 05:00 | NUR ---
PT INBED ORAL CARE DONE, PT TURNED AND CHANGED, NEW DRESSING APPLIED TO SACRAL WOUND. PT RECTAL BAG FELL OUT NEW ONE PUT IN . V/S FOLLOWS T 100 P 9 R 18 B/P 116/78 02 100% ON 2 LITERS N/C. ZOSYN HUNG ORDERED AND VANCO GIVEN VIA GT. PT F/S IS 187 GIVEN 2 UNITS HUMALOG SQ. BLOOD DRAWN FROM PICC.
[2018-10-18] MEDS: METOCLOPRAMIDE 10 MG/10 ML SYRP UDC GT SCH ×3 (06:18→16:44)
[2018-10-18] MEDS: INSULIN LISPRO SLIDING SCALE 100 UNITS/ML VIAL SUBQ PRN ×2 (06:32→12:07)
[2018-10-18] MEDS: BLOOD GLUCOSE MONITORING 1 DEV DEV FS SCH ×3 (06:33→16:46)
[2018-10-18] MEDS: ALBUTEROL SULFATE/IPRATROPIU 3 ML SOL IH SCH ×2 (07:22→14:19)
--- NOTE | 2018-10-18 07:30 | NUR ---
CARE ENDORSED TO AM SHIFT, PT IN STABLE CONDITION.
--- NOTE | 2018-10-18 07:31 | NUR ---
RECEIVED ENDORSEMENT FROM TRAFFIC CONTROL TECHNICIAN NURSE AT BEDSIDE FOR CONTINUITY OF CARE, PT IN STABLE CONDITION. SLEEPING BUT OCCASIONALLY YELLING FOR HELP. PT CONFUSED. UPDATED BOARD. PT HAS RECTAL BAG. RIGHT IJ FOR DIALYSIS. RIGHT PICC TO MIDLINE, SALINE LOCKED. SAFETY PRECAUTIONS IN PLACE, CALL LIGHT WITHIN REACH, WILL CONTINUE TO MONITOR PATIENT.
[2018-10-18 08:00] VITALS: BP 144/55
[2018-10-18 08:08] LABS: BASOPHILS # (AUTO) 0.1 K/uL (0.00-0.22); BASOPHILS % (AUTO) 0.7 % (0.0-2.0); EOSINOPHILS # (AUTO) 0.9 K/uL (0-0.4); HEMATOCRIT 27.1 % (36-52); HEMOGLOBIN 8.5 g/dL (12.0-18.0); LYMPHOCYTES # (AUTO) 3.4 K/uL (2.0-11.5); MEAN CORPUSCULAR HEMOGLOBIN 25 pg (27-31); MEAN CORPUSCULAR HGB CONC 31 g/dL (33-37); MEAN CORPUSCULAR VOLUME 78.5 fL (80-94); MONOCYTES # (AUTO) 1.5 K/uL (0.8-1.0); MONOCYTES % (AUTO) 9.4 % (1.7-9.3); NEUTROPHILS # (AUTO) 9.6 K/uL (1.8-7.7); NEUTROPHILS % (AUTO) 61.9 % (42.2-75.2); PLATELET COUNT (AUTO) 447 K/uL (140-450); RED BLOOD CELL COUNT(AUTO) 3.45 MIL/uL (4.20-6.10); RED CELL DISTRIBUTION WIDTH 19.6 % (11.6-13.7); WHITE BLOOD COUNT (AUTO) 15.5 K/uL (4.8-10.8)
[2018-10-18 08:14] LABS: ANION GAP 16.1 (8-16); POTASSIUM 3.1 mmol/L (3.5-5.1)
[2018-10-18 08:19] LABS: CREATININE 4.6 mg/dL (0.7-1.3)
[2018-10-18 08:37] LABS: MAGNESIUM 1.8 mg/dL (1.8-2.4); PHOSPHORUS 3.2 mg/dL (2.5-4.9)
[2018-10-18] MEDS: levETIRAcetam 100 MG/ML ORASYR PO SCH (08:37)
[2018-10-18] MEDS: ASCORBIC ACID 500 MG/5 ML ORASYR GT SCH (08:37)
[2018-10-18] MEDS: HYDROcodone/APAP 7.5/325 MG 1 TAB PO PRN ×2 (08:37→12:33)
[2018-10-18] MEDS: OLANZapine 2.5 MG TAB GT SCH (08:39)
[2018-10-18] MEDS: ASPIRIN 81 MG TAB.CHEW GT SCH (08:39)
[2018-10-18] MEDS: GABAPENTIN 100 MG CAP GT SCH (08:39)
[2018-10-18] MEDS: SERTRALINE 50 MG TAB GT SCH (08:39)
--- NOTE | 2018-10-18 08:39 | NUR ---
PATIENT SCREAMING AND ASKING FOR WATER, INFORMED PATIENT THAT HE IS NPO BECAUSE OF TUBE FEEDING, HE VERBALIZED UNDERSTANDING BUT CONTINUES TO SCREAM. PATIENT ALSO STATED PAIN. PRN NORCO GIVEN VIA GTUBE. GTUBE AUSCULTATED FOR PLACEMENT, 10 ML OF RESIDUAL NOTED. NORCO AND SCHEDULED PAIN MEDS GIVEN WITH 120 ML OF WATER. PATIENT TOLERATED. WILL CONTINUE TO MONITOR PATIENT.
[2018-10-18] MEDS: amLODIPine 5 MG TAB GT SCH (08:44)
[2018-10-18] MEDS: BACITRACIN OINT 15000 UNITS/30 GM TUBE TP SCH (09:00)
[2018-10-18 09:20] LABS: HEPATITIS B SURFACE ANTIBODY Reactive (.)
--- NOTE | 2018-10-18 09:30 | NUR ---
PATIENT REPOSITIONED FOR COMFORT AND TO OFFLOAD PRESSURE AREAS. PATIENT TOLERATED IT AND NOW IS CALM AND QUITE, SLEEPING, NO COMPLAINTS AT THIS TIME. WILL CONTINUE TO MONITOR PATIENT.
[2018-10-18] MEDS: cloNIDine 0.1 MG TAB GT SCH (10:00)
[2018-10-18] MEDS: hydrALAZINE 25 MG TAB PO SCH ×3 (10:00→16:44)
--- NOTE | 2018-10-18 10:45 | NUR ---
PATIENT'S FAMILY IN TO SEE PATIENT. PATIENT CURRENTLY SLEEPING SOUNDLY, RESPIRATIONS EVEN AND UNLABORED. NO COMPLAINTS AT THIS TIME. SAFETY PRECAUTIONS IN PLACE, CALL LIGHT WITHIN EACH, WILL CONTINUE TO MONITOR PATIENT.
[2018-10-18 12:00] VITALS: BP 152/54
--- NOTE | 2018-10-18 12:30 | NUR ---
GTUBE AUSCULTATED FOR PLACEMENT, 10 ML OF RESIDUAL NOTED. SCHEDULED MEDS GIVEN WITH 60 ML OF WATER. PATIENT TOLERATED. WILL CONTINUE TO MONITOR PATIENT.
[2018-10-18] MEDS ORDERED: HALOPERIDOL IM 5 MG/ML VIAL IM SCH (13:15)
[2018-10-18] MEDS ORDERED: DOCU-299 PO (13:23)
[2018-10-18] MEDS ORDERED: OLAN2.5T40 GT (13:23)
[2018-10-18] MEDS ORDERED: HYDR-4420 PO (13:23)
[2018-10-18] MEDS ORDERED: Therahoney Gel TP ×2 (13:23)
[2018-10-18] MEDS ORDERED: AMLO5TAB6 GT (13:23)
[2018-10-18] MEDS ORDERED: ASPI81CT95 GT (13:23)
[2018-10-18] MEDS ORDERED: BACO TP (13:23)
[2018-10-18] MEDS ORDERED: D50SYR IVP (13:23)
[2018-10-18] MEDS ORDERED: HUMSLIDE SUBQ (13:23)
[2018-10-18] MEDS ORDERED: METO5SOL20 GT (13:23)
[2018-10-18] MEDS ORDERED: Hydraguard TP (13:23)
[2018-10-18] MEDS ORDERED: Gauze TP (13:23)
[2018-10-18] MEDS ORDERED: KEP500L PO (13:23)
[2018-10-18] MEDS ORDERED: Foam Dressing TP (13:23)
[2018-10-18] MEDS ORDERED: ASCO-672 GT (13:23)
[2018-10-18] MEDS ORDERED: GLUC-805 FS (13:23)
[2018-10-18] MEDS ORDERED: CLON0.1T42 GT (13:23)
[2018-10-18] MEDS ORDERED: SERT-146 GT (13:23)
[2018-10-18] MEDS ORDERED: GABA-636 GT (13:23)
--- NOTE | 2018-10-18 13:27 | NUR ---
PATIENT SCREAMING STATING "I NEED TO SHIT". INFORMED HIM OF RECTAL BAG. HE VERBALIZED UNDERSTANDING BUT CONTINUES TO SCREAM. SPOKE TO DR. RUDOLPH. DR. RUDOLPH IN TO SPEAK TO PATIENT. PATIENT STILLS SCREAMING. NEW ORDERS IN. PRN MEDICATION GIVEN ORDERED. PATIENT TOLERATING IT.
[2018-10-18] MEDS ORDERED: PIPE1PDS39 IV (13:35)
[2018-10-18] MEDS ORDERED: LACT10CA1 PO (13:35)
--- NOTE | 2018-10-18 13:39 | NUR ---
Clinicals faxed to [facility] . Spoke with Ellen and she will review the dr's order and she will call me back. Addendum: 10/18/18 at 1451 by Teresita Rush Correct fax # to [facility] .
--- NOTE | 2018-10-18 13:45 | NUR ---
PATIENT CLEANED, WOUNDS DRESSED. PATIENT REPOSITIONED FOR COMFORT AND TO OFFLOAD PRESSURE AREAS. PATIENT NOW CALM AND SLEEPING COMFORTABLY. WILL CONTINUE TO MONITOR PATIENT.
[2018-10-18] MEDS: THERAHONEY GEL 42.5 GM TP SCH (13:55)
[2018-10-18] MEDS: GAUZE TP SCH (13:55)
--- NOTE | 2018-10-18 14:20 | NUR ---
Clinicals faxed to [facility] . Spoked to Nila Kennedy housing case manager she already gave AUTH to [facility] and pt will be going to room 303 [address].
--- NOTE | 2018-10-18 14:29 | NUR ---
[facility] AUTH # [id number] for transportation.
--- NOTE | 2018-10-18 14:43 | NUR ---
Transportations arranged with . Pt will be picked up from room 114 A at 1800 and transported to [facility] room 303 B. Address, [address] [place] [address], phone number . Sujit Flores RN for time of picker box operator.
[2018-10-18] MEDS: NACL 0.9% 1,000 ML IV SCH (14:55)
--- NOTE | 2018-10-18 15:45 | NUR ---
PATIENT SLEEPING, CALM AND QUIET. NO COMPLAINTS AT THIS TIME. WILL CONTINUE TO MONITOR PATIENT.
[2018-10-18 16:00] VITALS: BP 135/42
--- NOTE | 2018-10-18 18:25 | NUR ---
CALLED EMILY SINGLETON, PATIENT'S BROTHER AND INFORMED HIM OF PATIENTS IMPENDING TRANSFER BACK TO [facility]. HE VERBALIZED UNDERSTANDING.
--- NOTE | 2018-10-18 18:40 | NUR ---
CALLED [facility] AT . GAVE REPORT TO JESSIE BENSON, PATIENT WILL BE TRANSFERRED AT 1845 VIA [facility]. PATIENT'S ID BANDS CUT, RECTAL BAG REMOVED PER JESSIE'S REQUEST, AND TELE MONITOR REMOVED. WILL CONTINUE TO MONITOR PATIENT.
--- NOTE | 2018-10-18 18:45 | NUR ---
PATIENT WHEELED OFF FLOOR VIA [facility]. PATIENT TOOK ALL HIS BELONGINGS WITH HIM. PATIENT RESTING IN STABLE CONDITION.
[2018-10-19] MEDS ORDERED: FOAM DRESSING TP SCH (09:00)
== END 2018-10-18 18:45 | DRG 720 ==
LOC: MED 12:25 → MTU 17:21
PROVIDERS: ADMIT General Practice; ATTEND General Practice
PROC: 02HV33Z Insertion of Infusion Device into Superior Vena Cava, Percutaneous Approach (ICD-10-PCS; principal; 2018-10-15)
PROC: B548ZZA Ultrasonography of Superior Vena Cava, Guidance (ICD-10-PCS; 2018-10-15)
PROC: 5A1D70Z Performance of Urinary Filtration, Intermittent, Less than 6 Hours Per Day (ICD-10-PCS; 2018-10-16)
PROC: 5A1D70Z Performance of Urinary Filtration, Intermittent, Less than 6 Hours Per Day (ICD-10-PCS; 2018-10-17)
DX: A41.9 Sepsis, unspecified organism (principal); N17.0 Acute kidney failure with tubular necrosis; I21.A1 Myocardial infarction type 2; G93.49 Other encephalopathy; I13.2 Hypertensive heart and chronic kidney disease with heart failure and with stage 5 chronic kidney disease, or end stage renal disease; L89.153 Pressure ulcer of sacral region, stage 3; A04.72 Enterocolitis due to Clostridium difficile, not specified as recurrent; E11.22 Type 2 diabetes mellitus with diabetic chronic kidney disease; I50.43 Acute on chronic combined systolic (congestive) and diastolic (congestive) heart failure; E87.1 Hypo-osmolality and hyponatremia; R13.10 Dysphagia, unspecified; N18.6 End stage renal disease; D89.2 Hypergammaglobulinemia, unspecified; E11.40 Type 2 diabetes mellitus with diabetic neuropathy, unspecified; E78.5 Hyperlipidemia, unspecified; F03.90 Unspecified dementia, unspecified severity, without behavioral disturbance, psychotic disturbance, mood disturbance, and anxiety; F20.9 Schizophrenia, unspecified; G40.909 Epilepsy, unspecified, not intractable, without status epilepticus; I25.10 Atherosclerotic heart disease of native coronary artery without angina pectoris; N40.0 Benign prostatic hyperplasia without lower urinary tract symptoms; F41.9 Anxiety disorder, unspecified; K80.20 Calculus of gallbladder without cholecystitis without obstruction; E11.65 Type 2 diabetes mellitus with hyperglycemia; D63.8 Anemia in other chronic diseases classified elsewhere; F32.9 Major depressive disorder, single episode, unspecified; E83.39 Other disorders of phosphorus metabolism; L89.620 Pressure ulcer of left heel, unstageable; E87.6 Hypokalemia; E03.9 Hypothyroidism, unspecified; Z86.73 Personal history of transient ischemic attack (TIA), and cerebral infarction without residual deficits; Z90.01 Acquired absence of eye; Z93.1 Gastrostomy status; Z99.2 Dependence on renal dialysis; Z79.82 Long term (current) use of aspirin; Z79.899 Other long term (current) drug therapy
CPT/HCPCS: 36415; 36600; 71045; 71250; 78445; 80048; 80053; 80202; 82150; 82232; 82803; 82948; 83036; 83605; 83690; 83735; 83880; 84100; 84165; 84436; 84439; 84443; 84479; 84484; 85025; 85610; 85730; 86704; 86706; 86803; 87040; 87070; 87081; 87340; 90935; 93005; 94640; A9510; C1751; J1630; J1642; J1644; J1815; J2001; J2060; J2270; J2543; J3370; J3480; J7030; J7620; J8597; P9046; Q0092